=== PATIENT | male | born 1940 | race Caucasian/White ===

== ENCOUNTER 2017-01-03 04:27 | Inpatient (IN) | payer MEDICARE, OTHER ==
[~2017-01-03 04:27] MED LIST: AZITHROMYCIN 500 MG VIAL IVPB ONE; SODIUM CHLORIDE 0.9% 1,000 ML BAG ONE; SODIUM CHLORIDE 0.9% 250 ML BAG ONE
[2017-01-03 07:06] LABS: Creatine Kinase 57 U/L (55-170)
[2017-01-03 07:18] LABS: Creatine Kinase MB 1.2 ng/mL (0.0-2.4); Troponin I <0.012 ng/mL (0.000-0.034)
[2017-01-03] MEDS ORDERED: DIGOXIN 250 MCG/ML 2 ML AMP IVP SCH (10:00)
[2017-01-03] MEDS: METOPROLOL TARTRATE 50 MG TAB PO SCH ×3 (11:56→21:28)
[2017-01-03] MEDS: CLOPIDOGREL 75 MG TAB PO SCH (11:56)
[2017-01-03] MEDS: SODIUM CHLORIDE 0.9% 1,000 ML IV SCH ×2 (11:56→22:27)
[2017-01-03 11:57] LABS: Creatine Kinase MB 1.3 ng/mL (0.0-2.4); Troponin I <0.012 ng/mL (0.000-0.034)
[2017-01-03 12:13] LABS: Glucose,Whole Blood 113 mg/dL (75-99)
[2017-01-03] MEDS ORDERED: DILTIAZEM ORAL 60 MG TAB PO SCH (13:00)
[2017-01-03 13:38] LABS: Creatine Kinase MB 1.3 ng/mL (0.0-2.4); Troponin I <0.012 ng/mL (0.000-0.034)
[2017-01-03 14:47] LABS: Glucose,Whole Blood 76 mg/dL (75-99)
[2017-01-03 14:47] LABS: Glucose,Whole Blood 122 mg/dL (75-99)
[2017-01-03 15:58] LABS: Glucose,Whole Blood 137 mg/dL (75-99)
[2017-01-03] MEDS: INSULIN LISPRO (humaLOG) 300 UNIT/3 ML VIAL SQ SCH ×2 (17:19→21:27)
[2017-01-03 17:22] LABS: Glucose,Whole Blood 128 mg/dL (75-99)
[2017-01-03] MEDS: metFORMIN 500 MG TAB PO SCH (17:51)
[2017-01-03] MEDS: DIGOXIN 125 MCG TAB PO SCH (17:51)
[2017-01-03] MEDS: ENOXAPARIN 40 MG/0.4 ML SYRINGE SQ SCH (17:52)
--- NOTE | 2017-01-03 20:53 | HP ---
DATE OF ADMISSION: 01/03/2017 PRESENTING COMPLAINT: Altered mental status. HISTORY OF PRESENTING COMPLAINT: This is a pleasant 76-year-old patient of Dr. Metcalf who is very hard of hearing. He was transferred here from [facility]. Patient's chronic stable medical conditions include atrial fibrillation, coronary artery disease, diabetes, GERD, hyperlipidemia, hypertension, osteoarthritis, some kidney disease, arthritis. Patient was noted by his to have altered sensorium. EMS was called out; found his sugar to be 35. Patient's appetite has not been good. He has been taking Lantus at home. Patient is very hard of hearing; hence it is difficult to get a history, but he does follow otherwise. Denies any chest pain, shortness of breath. Does feel a bit weak. REVIEW OF SYSTEMS: CONSTITUTIONAL: Tired. HEENT: Severely hard of hearing. RESPIRATORY: None. CARDIOVASCULAR: None. GASTROINTESTINAL: Heartburn. GENITOURINARY: None. MUSCULOSKELETAL: Pain in different joints. DERMATOLOGICAL: None. HEMATOLOGICAL: None. LYMPHATIC: None. PSYCHIATRY: Some forgetfulness but able to answer questions. NEUROLOGICAL: None. PAST HISTORY: 1. Atrial fibrillation. 2. Coronary artery disease. 3. Diabetes mellitus, type 2. 4. GERD. 5. Hyperlipidemia. 6. Hypertension. 7. Osteoarthritis. 8. Chronic kidney disease. 9. Bilateral shoulder pain. 10. Meningitis. PAST SURGICAL HISTORY: 1. Cholecystectomy. 2. Cardiac catheterization with stent. 3. Pacemaker. 4. Tonsillectomy. 5. Bilateral cataract removal. 6. Left knee arthroscopy. SOCIAL HISTORY: Patient is . Lives in [place] at [facility]. Nurse manages medication and gives ( ) insulin. No smoking. No alcohol. FAMILY HISTORY: Diabetes. HOME MEDICATIONS: 1. Zocor 5 mg at bedtime. 2. Multivitamin 1 tablet p.o. daily. 3. Glucophage 500 mg p.o. b.i.d. 4. Lopressor 50 mg p.o. t.i.d. 5. Cardizem 60 mg p.o. with meals and at bedtime. 6. Lispro. 7. Plavix 75 mg a day. 8. Lantus 28 units subcutaneously in the morning. ALLERGIES: 1. CORTICOSTEROIDS. 2. MOTRIN. 3. LATEX. On examination, temperature 98, pulse 80, respiration 17, blood pressure 108/75, pulse ox 98% on room air. GENERAL APPEARANCE: Average build. Lying in bed. Awake. EYES: Pupils equal. Conjunctivae normal. NECK: JVD not raised. Mass not palpable. RESPIRATORY: Effort normal. Lungs are clear. CARDIOVASCULAR: First and second sounds normal. No edema. ABDOMEN: Soft, nontender. Liver and spleen not palpable. LYMPHATIC: No lymph node palpable in neck or axillae. PSYCHIATRY: Patient is able to answer questions, though it is difficult because he is very hard of hearing. MUSCULOSKELETAL: Evidence of osteoarthritis, especially in the hands and the knees. INVESTIGATIONS: Lactic acid 1.7. Troponin less than 0.012. UA negative. EKG shows pacemaker rhythm. ASSESSMENT: 1. Acute metabolic encephalopathy from hypoglycemia secondary to insulin. 2. Diabetes mellitus, type 2, chronically insulin-requiring. 3. Persistent atrial fibrillation; now has an automatic implantable cardioverter defibrillator. 4. Coronary artery disease with prior history of stent. 5. Gastroesophageal reflux disease. 6. Hyperlipidemia. 7. Essential hypertension. 8. Primary osteoarthritis in multiple joints. PLAN: Home medications will be resumed. Patient's insulin will be discontinued. Sugar is still running on the lower side. After lunch it was 136. Will also hold off patient's metformin for right now. Patient is on a rather odd dose of Cardizem, and even though patient's blood pressure is on the lower side, we will switch to a smaller dose of Cardizem. Care was discussed with the patient. construction pit worker is involved. Given the patient's age, hard of hearing, we need to make sure patient is safe. Will need at least 2 nights in the hospital. Keep an eye on the patient's Accu-Cheks.
[2017-01-03 21:11] LABS: Glucose,Whole Blood 188 mg/dL (75-99)
[2017-01-03] MEDS: ATORVASTATIN 10 MG TAB PO SCH (21:28)
[2017-01-03] MEDS: DILTIAZEM ORAL 60 MG TAB PO SCH (21:28)
[2017-01-04] MEDS: SODIUM CHLORIDE 0.9% 1,000 ML IV SCH ×3 (05:17→20:10)
[2017-01-04 06:31] LABS: Glucose,Whole Blood 125 mg/dL (75-99)
[2017-01-04] MEDS: INSULIN LISPRO (humaLOG) 300 UNIT/3 ML VIAL SQ SCH ×4 (06:41→20:23)
[2017-01-04] MEDS: metFORMIN 500 MG TAB PO SCH ×2 (06:41→17:07)
[2017-01-04 07:08] LABS: Anion Gap 9 mmol/L; Blood Urea Nitrogen 14 mg/dL (9-20); Calcium 9.1 mg/dL (8.4-10.2); Carbon Dioxide 20 mmol/L (22-30); Chloride 113 mmol/L (98-107); Glucose 94 mg/dL (74-99); Non-African American GFR(MDRD) >60 (>60 ml/min/1.73 sqM); Sodium 142 mmol/L (137-145)
[2017-01-04 07:14] LABS: Potassium 5.5 mmol/L (3.5-5.1); Total Protein 6.6 g/dL (6.3-8.2)
[2017-01-04 07:15] LABS: ALT 21 U/L (21-72); AST 38 U/L (17-59); Alkaline Phosphatase 48 U/L (38-126); Total Bilirubin 0.9 mg/dL (0.2-1.3)
[2017-01-04 07:34] LABS: Basophils % (A) 1 %; CH 31.1; CHCM 32.3; Eosinophils # (A) 0.4 k/uL (0-0.7); Eosinophils % (A) 5 %; HCT 48.8 % (39.0-53.0); HGB 15.8 gm/dL (13.0-17.5); Luc % (Auto) 2; Lymphocytes # (A) 2.6 k/uL (1.0-4.8); Lymphocytes % (A) 31 %; MCH 31.3 pg (25.0-35.0); MCHC 32.3 g/dL (31.0-37.0); MCV 96.8 fL (80.0-100.0); Mean Platelet Volume 7.1; Monocytes # (A) 0.5 k/uL (0-1.0); Monocytes % (A) 6 %; Neutrophils # (A) 4.6 k/uL (1.3-7.7); Neutrophils % (A) 56 %; RBC 5.04 m/uL (4.30-5.90); RDW 14.4 % (11.5-15.5); WBC 8.3 k/uL (3.8-10.6); WBC (Perox) 8.44
[2017-01-04] MEDS: CLOPIDOGREL 75 MG TAB PO SCH (08:46)
[2017-01-04] MEDS: DIGOXIN 125 MCG TAB PO SCH (08:46)
[2017-01-04] MEDS: DILTIAZEM ORAL 60 MG TAB PO SCH ×3 (08:47→21:53)
[2017-01-04] MEDS: ENOXAPARIN 40 MG/0.4 ML SYRINGE SQ SCH (08:47)
[2017-01-04] MEDS: METOPROLOL TARTRATE 50 MG TAB PO SCH ×3 (08:47→21:53)
[2017-01-04 08:57] VITALS: RESP 16
[2017-01-04] MEDS ORDERED: INSULIN GLARGINE 100 UNIT/ML 10 ML VIAL SQ SCH (09:00)
[2017-01-04 10:55] LABS: Hemoglobin A1C 5.9 % (4.2-6.1)
[2017-01-04 11:53] LABS: Glucose,Whole Blood 146 mg/dL (75-99)
[2017-01-04] MEDS: MULTIVITAMINS, THERA 1 EACH TAB PO SCH (12:35)
[2017-01-04] MEDS ORDERED: SODIUM POLYSTYRENE SULFONATE 15 GM/60 ML BOTTLE PO STA (16:15)
[2017-01-04 17:08] LABS: Glucose,Whole Blood 134 mg/dL (75-99)
[2017-01-04 20:16] LABS: Glucose,Whole Blood 161 mg/dL (75-99)
[2017-01-04] MEDS: ATORVASTATIN 10 MG TAB PO SCH (20:23)
[2017-01-05 07:29] LABS: Glucose,Whole Blood 106 mg/dL (75-99)
[2017-01-05 07:39] VITALS: PULSE 54
[2017-01-05] MEDS: INSULIN LISPRO (humaLOG) 300 UNIT/3 ML VIAL SQ SCH ×3 (07:41→17:20)
[2017-01-05] MEDS: DIGOXIN 125 MCG TAB PO SCH (07:42)
[2017-01-05] MEDS: CLOPIDOGREL 75 MG TAB PO SCH (07:42)
[2017-01-05] MEDS: ENOXAPARIN 40 MG/0.4 ML SYRINGE SQ SCH (07:42)
[2017-01-05] MEDS: DILTIAZEM ORAL 60 MG TAB PO SCH ×2 (07:42→17:20)
[2017-01-05] MEDS: METOPROLOL TARTRATE 50 MG TAB PO SCH ×2 (07:42→17:20)
[2017-01-05] MEDS: metFORMIN 500 MG TAB PO SCH ×2 (07:43→17:20)
[2017-01-05 08:34] LABS: Basophils # (A) 0.1 k/uL (0-0.2); Basophils % (A) 1 %; CH 30.8; CHCM 31.9; Eosinophils # (A) 0.4 k/uL (0-0.7); Eosinophils % (A) 6 %; HCT 45.8 % (39.0-53.0); HGB 14.5 gm/dL (13.0-17.5); Luc % (Auto) 3; Lymphocytes # (A) 2.4 k/uL (1.0-4.8); Lymphocytes % (A) 31 %; MCH 30.7 pg (25.0-35.0); MCHC 31.7 g/dL (31.0-37.0); MCV 96.9 fL (80.0-100.0); Monocytes # (A) 0.5 k/uL (0-1.0); Monocytes % (A) 7 %; Neutrophils # (A) 4.2 k/uL (1.3-7.7); Neutrophils % (A) 54 %; RBC 4.73 m/uL (4.30-5.90); RDW 14.2 % (11.5-15.5); WBC 7.7 k/uL (3.8-10.6); WBC (Perox) 7.71
--- NOTE | 2017-01-05 11:33 | PN ---
DATE OF SERVICE: 01/04/2017 PRESENTING COMPLAINT: Hypoglycemia. INTERVAL HISTORY: This patient is very hard of hearing, though understands things well. He presented with hypoglycemia. He was taking insulin, but sugars continued to run low causing his altered mental status. Patient's appetite has gone down over time and that is probably the reason he has been running low sugars, taking insulin at home. Insulin has been held off here. Review of systems done for constitutional, cardiovascular, GI, pulmonary; relevant findings as above. Current medications are reviewed that include metformin 500 mg twice a day. On examination, temperature 97, pulse 87, respiration 16, blood pressure 120/72, pulse ox 98% on room air. GENERAL APPEARANCE: Lying in bed, awake. EYES: Pupils equal, conjunctivae normal. NECK: JVD not raised. Mass not palpable. RESPIRATORY: Effort normal. Lungs are clear. CARDIOVASCULAR: First and second sounds normal. No edema. ABDOMEN: Soft, nontender. Liver and spleen not palpable. PSYCHIATRY: The patient knows that he is at [facility], knows the month, knows the year, knows that he had episode of confusion. Recognizes the nurse very well. He is of course very hard of hearing. INVESTIGATIONS: Accu-Cheks 146, 134, 161. HbA1c was 5.9 ASSESSMENT: 1. Acute metabolic encephalopathy from hypoglycemic event secondary to insulin, improved. 2. Diabetes mellitus type 2, chronically had been on insulin, but now not requiring insulin. 3. Severely hard of hearing. 4. Persistent atrial fibrillation, has AICD. 5. Coronary artery disease with prior history of stent. 6. Gastroesophageal reflux disease. 7. Hyperlipidemia. 8. Essential hypertension. 9. Primary osteoarthritis of multiple joints. I did speak to the nurse to keep the patient off insulin. I did convey to the family that the patient is rather capable of decision making except he is extremely hard of hearing. brick kiln worker is to be involved for discharge planning.
[2017-01-05 11:39] LABS: Glucose,Whole Blood 167 mg/dL (75-99)
[2017-01-05] MEDS: MULTIVITAMINS, THERA 1 EACH TAB PO SCH (11:47)
[2017-01-05] MEDS: SODIUM CHLORIDE 0.9% 1,000 ML IV SCH (11:49)
[2017-01-05 15:40] VITALS: BP 128/85; TEMP 97.8
[2017-01-05 17:17] LABS: Glucose,Whole Blood 109 mg/dL (75-99)
--- NOTE | 2017-01-06 16:46 | DS ---
DATE OF ADMISSION: 01/03/2017 DATE OF DISCHARGE: 01/05/2017 FINAL DIAGNOSIS(ES): 1. Acute metabolic encephalopathy from hyperglycemia ( ) Insulin. 2. Diabetes mellitus type 2, chronically on insulin, now not requiring insulin. 3. Severely hard of hearing. 4. Persistent atrial fibrillation. Has AICD. 5. Coronary artery disease with prior history of stent. 6. Gastroesophageal reflux disease. 7. Hyperlipidemia. 8. Essential hypertension. 9. Primary osteoarthritis of multiple joints. HOSPITAL COURSE: This patient presented with some confusion, found to have low blood sugars. The patient has been taking insulin. The patient had completely stopped and sugars running in less than 200s. The heart is very hard of hearing and that is why there has been no communication at home. The patient able to carry out otherwise a normal conversation though extremely hard of hearing. This was conveyed on the day of discharge to the niece in detail. On exam, lungs are clear. CARDIOVASCULAR: First and second sounds normal. Discharge planning more than 35 minutes. DISCHARGE MEDICATIONS: 1. Insulin discontinued. 2. Plavix 75 mg a day. 3. Lopressor 50 mg p.o. t.i.d. 4. Multivitamin 1 tablet p.o. daily. 5. Zocor 5 mg q.h.s. 6. Glucophage 500 mg p.o. b.i.d. 7. Cardizem 60 mg p.o. t.i.d. Follow with Dr. Metcalf in one week.
--- NOTE | 2017-02-13 11:16 | DS ---
DATE OF ADMISSION: 01/03/2017 DATE OF DISCHARGE: 01/05/2017 ADDENDUM FINAL DIAGNOSIS: 1. Acute metabolic encephalopathy from hypoglycemia secondary to insulin.
== END 2017-01-05 19:00 | disposition home or self-care (01) | DRG 643 ==
LOC: EC 04:27 → 6SEL 05:07 → 5MS5E 01-04 19:28
PROVIDERS: ADMIT Hospitalist; ATTEND Hospitalist
DX: E16.0 Drug-induced hypoglycemia without coma (principal); G93.41 Metabolic encephalopathy; I48.1 Persistent atrial fibrillation; E11.65 Type 2 diabetes mellitus with hyperglycemia; I12.9 Hypertensive chronic kidney disease with stage 1 through stage 4 chronic kidney disease, or unspecified chronic kidney disease; N18.9 Chronic kidney disease, unspecified; I25.10 Atherosclerotic heart disease of native coronary artery without angina pectoris; T38.3X5A Adverse effect of insulin and oral hypoglycemic [antidiabetic] drugs, initial encounter; E78.5 Hyperlipidemia, unspecified; M25.511 Pain in right shoulder; K21.9 Gastro-esophageal reflux disease without esophagitis; M25.512 Pain in left shoulder; R53.1 Weakness; M19.042 Primary osteoarthritis, left hand; I49.3 Ventricular premature depolarization; M19.041 Primary osteoarthritis, right hand; M17.0 Bilateral primary osteoarthritis of knee; H91.90 Unspecified hearing loss, unspecified ear; Z79.899 Other long term (current) drug therapy; Z79.4 Long term (current) use of insulin; Z79.02 Long term (current) use of antithrombotics/antiplatelets; Z83.3 Family history of diabetes mellitus; Z88.8 Allergy status to other drugs, medicaments and biological substances; Z86.61 Personal history of infections of the central nervous system; Z88.6 Allergy status to analgesic agent; Z91.040 Latex allergy status; Z90.49 Acquired absence of other specified parts of digestive tract; Z98.42 Cataract extraction status, left eye; Z98.41 Cataract extraction status, right eye; Z95.810 Presence of automatic (implantable) cardiac defibrillator; Z95.5 Presence of coronary angioplasty implant and graft
CPT/HCPCS: 36415; 80053; 82550; 82553; 83036; 83605; 84132; 84484; 85025; 87040; 99285